=== PATIENT | female | born 1940 | race Native Hawaiian/Other Pacific Islander ===

== ENCOUNTER 2016-10-16 15:02 | Outpatient (CLI) | payer OTHER ==
[~2016-10-16 15:02] MED LIST: ADLT ASA LOW81 MG PO; ALBU90AE13 INH; ALPR0.2566 PO; CITA20TA2 PO; CLARITIN10 MG PO; CLOP75TA2 PO; DICL1GEL2 TOP; DONE5TAB PO; GLIP10TA55 PO; HYDR12.54 PO; INSU100P SC; LEVEMIR SC; NIFE30TA PO; NOVOLOG SC; RESTORIL7.5 MG PO; RISP0.5T2 PO; SIMV40TA57; SUPER B COM1 PO; VALS160T PO; VITAMIN B-COMPLEX OR
[2016-10-16 16:09] LABS: PLATELET COUNT 411 K/uL (152-353)
[2016-10-16 16:34] LABS: POTASSIUM 4.8 mmol/L (3.6-5.2)
== END 2016-10-16 21:29 | disposition home or self-care (01) ==
LOC: LABW 15:02
PROVIDERS: Internal Medicine
DX: R06.02 Shortness of breath (principal); E11.9 Type 2 diabetes mellitus without complications
CPT/HCPCS: 36415; 80053; 80061; 83036; 83880; 84439; 84443; 85027; 85379

== ENCOUNTER 2016-10-17 15:39 | Outpatient (CLI) | payer OTHER | END 2016-10-17 21:44 | disposition home or self-care (01) | LOC: LAB 15:39 | DX: E11.9 Type 2 diabetes mellitus without complications (principal); R06.02 Shortness of breath | CPT/HCPCS: 81000; 82043; 82570 ==

== ENCOUNTER 2016-10-20 15:53 | Emergency (ER) | payer OTHER ==
[~2016-10-20] VITALS: Ht 157.5 cm; Wt 90.7 kg
[2016-10-20 17:01] LABS: PLATELET COUNT 401 K/uL (152-353)
[2016-10-20 17:21] LABS: POTASSIUM 4.6 mmol/L (3.6-5.2)
[2016-10-20 19:10] VITALS: BP 152/81; TEMP 98
== END 2016-10-20 19:10 | disposition home or self-care (01) ==
LOC: ED 15:53
DX: J44.9 Chronic obstructive pulmonary disease, unspecified (principal); E11.65 Type 2 diabetes mellitus with hyperglycemia; R06.09 Other forms of dyspnea
CPT/HCPCS: 36415; 80053; 81002; 82962; 83036; 83880; 85027; 93005; 96374; 96375; 96376; 99284; J1815; J2930

== ENCOUNTER 2016-12-30 19:41 | Emergency (ER) | payer OTHER ==
[~2016-12-30] VITALS: Ht 162.6 cm; Wt 94.3 kg
[2016-12-30 20:15] VITALS: BP 148/76; TEMP 98.6
== END 2016-12-30 20:17 | disposition home or self-care (01) ==
LOC: ED 19:41
DX: M77.8 Other enthesopathies, not elsewhere classified (principal)
CPT/HCPCS: 99281

== ENCOUNTER 2017-05-22 21:23 | Emergency (ER) | payer OTHER ==
[~2017-05-22] VITALS: Ht 165.1 cm; Wt 95.3 kg
[2017-05-22 22:10] LABS: PLATELET COUNT 333 K/uL (152-353)
[2017-05-22 23:49] LABS: POTASSIUM 4.6 mmol/L (3.6-5.2)
[2017-05-23 00:22] LABS: PARTIAL THROMBOPLASTIN TIME 20.8 SECONDS (24.5-33.6)
[2017-05-23 00:46] VITALS: BP 137/78; TEMP 98.8
== END 2017-05-23 01:01 | disposition home or self-care (01) ==
LOC: ED 21:23
DX: K85.90 Acute pancreatitis without necrosis or infection, unspecified (principal); E11.9 Type 2 diabetes mellitus without complications
CPT/HCPCS: 36415; 80053; 82150; 82550; 82553; 83690; 84484; 85027; 85610; 85730; 93005; 96374; 99284; J1885

== ENCOUNTER 2017-09-11 09:14 | Outpatient (CLI) | payer OTHER ==
[2017-09-11 09:36] LABS: PLATELET COUNT 369 K/uL (152-353)
[2017-09-11 10:15] LABS: POTASSIUM 4.8 mmol/L (3.6-5.2)
== END 2017-09-11 19:17 | disposition home or self-care (01) ==
LOC: LABW 09:14
PROVIDERS: Internal Medicine
DX: E11.9 Type 2 diabetes mellitus without complications (principal); R82.99 Other abnormal findings in urine
CPT/HCPCS: 36415; 80053; 80061; 81000; 83036; 84439; 84443; 85027; 87077; 87086; 87088; 87186

== ENCOUNTER 2019-01-27 19:58 | Inpatient (IN) | payer OTHER ==
[~2019-01-27] VITALS: Ht 160 cm; Wt 87.2 kg
[2019-01-27 20:05] VITALS: BP 124/64; TEMP 97
[2019-01-27] MEDS ORDERED: COZAAR100 MG PO (20:16)
[2019-01-27] MEDS ORDERED: GLIP10TA55 PO (20:19)
[2019-01-27] MEDS ORDERED: LEVEMIR FL100 UNIT/M SC (20:21)
[2019-01-27] MEDS ORDERED: NOVOLOG FL100 UNIT/M SC (20:22)
[2019-01-27 20:46] VITALS: BP 142/67
[2019-01-27 21:25] LABS: PLATELET COUNT 403 K/uL (152-353)
[2019-01-27 21:54] VITALS: BP 122/78
[2019-01-27 21:56] LABS: POTASSIUM 5.4 mmol/L (3.6-5.2); SODIUM 127 mmol/L (136-145)
[2019-01-27 23:25] VITALS: BP 140/115
[2019-01-28] VITALS (7 sets, daily range): BP systolic 105–171; BP diastolic 42–88; TEMP 97.4–98; Ht 160 cm; Wt 87.2 kg
[2019-01-28 00:22] LABS: POTASSIUM 5.9 mmol/L (3.6-5.2)
--- NOTE | 2019-01-28 02:00 | NUR ---
REPORT RECIEVED FROM DEANN WHITING RN
--- NOTE | 2019-01-28 02:34 | NUR ---
PT ADMITTED FROM ER. PT ARRIVED VIA W/C. PT ALERT, ORIENTED X3
[2019-01-28 08:56] LABS: POTASSIUM 3.9 mmol/L (3.6-5.2)
--- NOTE | 2019-01-28 12:49 | NUR ---
Patient has a diagnosis of hyperkalemia, dehydration, arf, dhn arf and ibw 115+/-10%. weight at 189.7 and kcal for IBW 1600, pro 50-60, fluids for weight 2600 x 30 and 8827-1451 ml per day x 25. Presently is on a 2000 Calorie ADA diet plan. BMI at 33.6 and is class I obesity and is 165% IBW.
--- NOTE | 2019-01-28 14:32 | NUR ---
PHYSICAL THERAPY IN ROOM WITH PT
[2019-01-29] VITALS: BP 137/61; TEMP 98.7
[2019-01-29 04:00] VITALS: BP 154/64; TEMP 98.1
[2019-01-29 05:24] LABS: PLATELET COUNT 353 K/uL (152-353)
[2019-01-29 05:50] LABS: POTASSIUM 4.5 mmol/L (3.6-5.2)
[2019-01-29 08:00] VITALS: BP 149/53; TEMP 97.8
--- NOTE | 2019-01-29 11:29 | NUR ---
PT DISCHARED TO HOME. IV DC'D TIP INTACT, NO REDNESS NOTED. DRESSING APPLIED; COTTON BALL AND PAPER TAPE. DISCHARGE INSTRUCTIONS GIVEN WRITTEN AND VERBALLY TO PT AND FAMILY. PT AND FAMILY VERBALIZED UNDERSTANDING. PT WAS TOLD TO FOLLOW UP WITH PCP IN 3-5 DAYS. Q AND A PERIOD ALLOWED, NO FURTHER QUESTIONS.
--- NOTE | 2019-01-29 11:35 | NUR ---
PT DC'D HOME. TELEMETRY DC'D. PT TAKEN OUT BY WC TO PRIVATE FAMILY VEHICLE. NO DISTRESS NOTED.
== END 2019-01-29 11:35 | disposition home or self-care (01) | DRG 683 ==
LOC: ED 19:58 → MED/SURG 01-28 01:30
PROVIDERS: Emergency Medicine; ADMIT Internal Medicine
DX: N17.8 Other acute kidney failure (principal); B37.89 Other sites of candidiasis; E87.1 Hypo-osmolality and hyponatremia; N18.4 Chronic kidney disease, stage 4 (severe); E86.0 Dehydration; E87.5 Hyperkalemia; I25.10 Atherosclerotic heart disease of native coronary artery without angina pectoris; Z79.4 Long term (current) use of insulin; J44.9 Chronic obstructive pulmonary disease, unspecified; F41.8 Other specified anxiety disorders; Z79.01 Long term (current) use of anticoagulants; E11.22 Type 2 diabetes mellitus with diabetic chronic kidney disease; I12.9 Hypertensive chronic kidney disease with stage 1 through stage 4 chronic kidney disease, or unspecified chronic kidney disease
CPT/HCPCS: 36415; 80048; 80053; 81000; 82550; 83735; 84484; 85027; 93005; 96360; 96372; 96375; 99284; J1450; J1650; J1815; J2270; J2405; J3490

== ENCOUNTER 2019-03-23 15:33 | Outpatient (CLI) | payer OTHER ==
[~2019-03-23 15:33] MED LIST changes: +COZAAR100 MG PO; +LEVEMIR FL100 UNIT/M SC; +NOVOLOG FL100 UNIT/M SC
[2019-03-23 16:05] LABS: PLATELET COUNT 407 K/uL (152-353)
[2019-03-23 16:41] LABS: POTASSIUM 4.9 mmol/L (3.6-5.2)
== END 2019-03-23 23:41 | disposition home or self-care (01) ==
LOC: LABW 15:33
PROVIDERS: Physician Assistant
DX: E11.40 Type 2 diabetes mellitus with diabetic neuropathy, unspecified (principal); I10 Essential (primary) hypertension; K13.0 Diseases of lips; E55.9 Vitamin D deficiency, unspecified; E53.8 Deficiency of other specified B group vitamins; M15.8 Other polyosteoarthritis
CPT/HCPCS: 36415; 80053; 80061; 82306; 82607; 83036; 83735; 84443; 85027

== ENCOUNTER 2019-04-19 10:24 | Inpatient (IN) | payer OTHER | END 2019-05-05 10:39 | disposition still patient (30) | LOC: PAVB 10:24 | PROVIDERS: ADMIT Internal Medicine ==

== ENCOUNTER 2019-04-20 02:31 | Outpatient (CLI) | payer OTHER ==
[2019-04-20 08:48] LABS: PLATELET COUNT 373 K/uL (152-353)
[2019-04-20 09:05] LABS: POTASSIUM 4.3 mmol/L (3.6-5.2)
== END 2019-04-20 23:38 | disposition home or self-care (01) ==
LOC: LAB 02:31
PROVIDERS: Internal Medicine
DX: I12.9 Hypertensive chronic kidney disease with stage 1 through stage 4 chronic kidney disease, or unspecified chronic kidney disease (principal); N18.4 Chronic kidney disease, stage 4 (severe); E11.9 Type 2 diabetes mellitus without complications; E55.9 Vitamin D deficiency, unspecified; I25.10 Atherosclerotic heart disease of native coronary artery without angina pectoris; E86.0 Dehydration; E87.8 Other disorders of electrolyte and fluid balance, not elsewhere classified
CPT/HCPCS: 80053; 80061; 82306; 83036; 85027; 87081

== ENCOUNTER 2019-05-05 11:44 | Inpatient (IN) | payer OTHER | END 2019-06-05 16:30 | disposition still patient (30) | LOC: PAVB 11:44 | PROVIDERS: ADMIT Internal Medicine ==

== ENCOUNTER 2019-06-05 16:48 | Inpatient (IN) | payer OTHER | END 2019-07-05 09:36 | disposition still patient (30) | LOC: PAVB 16:48 | PROVIDERS: ADMIT Internal Medicine ==

== ENCOUNTER 2019-07-05 12:01 | Inpatient (IN) | payer OTHER | END 2019-08-05 11:14 | disposition still patient (30) | LOC: PAVB 12:01 | PROVIDERS: ADMIT Internal Medicine ==

== ENCOUNTER 2019-07-06 12:20 | Outpatient (CLI) | payer OTHER | END 2019-07-06 23:45 | disposition home or self-care (01) | LOC: LAB 12:20 | DX: E11.69 Type 2 diabetes mellitus with other specified complication (principal) | CPT/HCPCS: 83036 ==

== ENCOUNTER 2019-08-05 12:09 | Inpatient (IN) | payer OTHER | END 2019-09-04 08:00 | disposition still patient (30) | LOC: PAVB 12:09 | PROVIDERS: ADMIT Internal Medicine ==

== ENCOUNTER 2019-09-04 10:10 | Inpatient (IN) | payer OTHER | END 2019-10-05 09:05 | disposition still patient (30) | LOC: PAVB 10:10 | PROVIDERS: ADMIT Internal Medicine ==

== ENCOUNTER 2019-10-05 09:20 | Inpatient (IN) | payer OTHER | END 2019-11-05 10:00 | disposition still patient (30) | LOC: PAVB 09:20 | PROVIDERS: ADMIT Internal Medicine ==

== ENCOUNTER 2019-10-11 06:08 | Outpatient (CLI) | payer OTHER ==
[2019-10-11 08:09] LABS: PLATELET COUNT 339 K/uL (152-353)
[2019-10-11 08:41] LABS: POTASSIUM 4.9 mmol/L (3.6-5.2)
== END 2019-10-11 17:00 | disposition home or self-care (01) ==
LOC: LAB 06:08
PROVIDERS: Internal Medicine
DX: I12.9 Hypertensive chronic kidney disease with stage 1 through stage 4 chronic kidney disease, or unspecified chronic kidney disease (principal); N18.4 Chronic kidney disease, stage 4 (severe)
CPT/HCPCS: 80053; 85027

== ENCOUNTER 2019-11-05 10:19 | Inpatient (IN) | payer OTHER | END 2019-12-04 13:19 | disposition still patient (30) | LOC: PAVB 10:19 | PROVIDERS: ADMIT Internal Medicine ==

== ENCOUNTER 2019-11-14 06:16 | Outpatient (CLI) | payer OTHER ==
[2019-11-14 06:33] LABS: PLATELET COUNT 342 K/uL (152-353)
[2019-11-14 06:44] LABS: POTASSIUM 4.7 mmol/L (3.6-5.2)
== END 2019-11-14 19:02 | disposition home or self-care (01) ==
LOC: LAB 06:16
PROVIDERS: Internal Medicine
DX: I12.9 Hypertensive chronic kidney disease with stage 1 through stage 4 chronic kidney disease, or unspecified chronic kidney disease (principal); N18.4 Chronic kidney disease, stage 4 (severe); E11.9 Type 2 diabetes mellitus without complications
CPT/HCPCS: 80069; 85027

== ENCOUNTER 2019-12-04 13:40 | Inpatient (IN) | payer OTHER | END 2020-01-04 09:49 | disposition still patient (30) | LOC: PAVB 13:40 | PROVIDERS: ADMIT Internal Medicine ==

== ENCOUNTER 2020-01-04 11:24 | Inpatient (IN) | payer OTHER | END 2020-02-03 09:08 | disposition still patient (30) | LOC: PAVB 11:24 | PROVIDERS: ADMIT Internal Medicine ==

== ENCOUNTER 2020-01-10 05:08 | Outpatient (CLI) | payer OTHER | END 2020-01-10 19:08 | disposition home or self-care (01) | LOC: LAB 05:08 | DX: E11.9 Type 2 diabetes mellitus without complications (principal) | CPT/HCPCS: 36415; 83036 ==

== ENCOUNTER 2020-02-03 11:10 | Inpatient (IN) | payer OTHER | END 2020-03-05 09:15 | disposition still patient (30) | LOC: PAVB 11:10 | PROVIDERS: ADMIT Internal Medicine | CPT/HCPCS: 87635; U0002 ==

== ENCOUNTER 2020-03-05 11:17 | Inpatient (IN) | payer OTHER | END 2020-04-04 10:24 | disposition still patient (30) | LOC: PAVB 11:17 | PROVIDERS: ADMIT Internal Medicine | CPT/HCPCS: 87635; U0002 ==

== ENCOUNTER 2020-03-12 17:26 | Outpatient (CLI) | payer OTHER | END 2020-03-12 23:35 | disposition home or self-care (01) | LOC: RESP 17:26 | DX: I10 Essential (primary) hypertension (principal); R00.1 Bradycardia, unspecified | CPT/HCPCS: 93005 ==

== ENCOUNTER 2020-04-04 11:52 | Inpatient (IN) | payer OTHER | END 2020-05-05 09:22 | disposition still patient (30) | LOC: PAVB 11:52 | PROVIDERS: ADMIT Internal Medicine | CPT/HCPCS: 87635; U0002 ==

== ENCOUNTER 2020-04-05 07:59 | Outpatient (CLI) | payer OTHER ==
[2020-04-05 09:16] LABS: POTASSIUM 4.9 mmol/L (3.6-5.2)
[2020-04-05 09:55] LABS: PLATELET COUNT 378 K/uL (152-353)
== END 2020-04-05 19:56 | disposition home or self-care (01) ==
LOC: LAB 07:59
PROVIDERS: Internal Medicine
DX: E11.9 Type 2 diabetes mellitus without complications (principal); I10 Essential (primary) hypertension; E78.49 Other hyperlipidemia; E55.9 Vitamin D deficiency, unspecified; I25.10 Atherosclerotic heart disease of native coronary artery without angina pectoris
CPT/HCPCS: 80053; 80061; 82306; 83036; 85027

== ENCOUNTER 2020-04-06 17:21 | Outpatient (CLI) | payer OTHER | END 2020-04-06 19:37 | disposition home or self-care (01) | LOC: LAB 17:21 | DX: I25.10 Atherosclerotic heart disease of native coronary artery without angina pectoris (principal); R79.89 Other specified abnormal findings of blood chemistry | CPT/HCPCS: 82607; 82747; 83540; 83550 ==

== ENCOUNTER 2020-04-08 17:07 | Outpatient (CLI) | payer OTHER | END 2020-04-08 19:05 | disposition home or self-care (01) | LOC: LAB 17:07 | DX: D64.89 Other specified anemias (principal) | CPT/HCPCS: 82272 ==

== ENCOUNTER 2020-04-19 11:28 | Outpatient (CLI) | payer OTHER ==
[2020-04-19 11:47] LABS: PLATELET COUNT 342 K/uL (152-353)
== END 2020-04-19 22:52 | disposition home or self-care (01) ==
LOC: LAB 11:28
PROVIDERS: Internal Medicine
DX: I25.10 Atherosclerotic heart disease of native coronary artery without angina pectoris (principal)
CPT/HCPCS: 85027

== ENCOUNTER 2020-04-27 14:44 | Outpatient (CLI) | payer OTHER | END 2020-04-27 19:50 | disposition home or self-care (01) | LOC: RAD 14:44 | PROVIDERS: ATTEND Internal Medicine | DX: J44.9 Chronic obstructive pulmonary disease, unspecified (principal) ==

== ENCOUNTER 2020-05-04 12:01 | Outpatient (CLI) | payer OTHER | END 2020-05-04 20:01 | disposition home or self-care (01) | LOC: LAB 12:01 | DX: E11.9 Type 2 diabetes mellitus without complications (principal) | CPT/HCPCS: 82947 ==

== ENCOUNTER 2020-05-05 05:35 | Outpatient (CLI) | payer OTHER | END 2020-05-05 19:11 | disposition home or self-care (01) | LOC: LAB 05:35 | DX: R82.998 Other abnormal findings in urine (principal) | CPT/HCPCS: 81000 ==

== ENCOUNTER 2020-05-05 10:08 | Inpatient (IN) | payer OTHER | END 2020-06-05 12:22 | disposition still patient (30) | LOC: PAVB 10:08 | PROVIDERS: ADMIT Internal Medicine ==

== ENCOUNTER 2020-06-05 13:23 | Inpatient (IN) | payer OTHER | END 2020-07-05 11:09 | disposition still patient (30) | LOC: PAVB 13:23 | PROVIDERS: ADMIT Internal Medicine ==

== ENCOUNTER 2020-07-05 14:05 | Inpatient (IN) | payer OTHER | END 2020-08-05 08:00 | disposition still patient (30) | LOC: PAVB 14:05 | PROVIDERS: ADMIT Internal Medicine ==

== ENCOUNTER 2020-07-09 07:19 | Outpatient (CLI) | payer OTHER | END 2020-07-09 23:36 | disposition home or self-care (01) | LOC: LAB 07:19 | DX: E11.9 Type 2 diabetes mellitus without complications (principal) | CPT/HCPCS: 83036 ==

== ENCOUNTER 2020-08-05 09:00 | Inpatient (IN) | payer OTHER | END 2020-09-04 10:00 | disposition still patient (30) | LOC: PAVB 09:00 | PROVIDERS: ADMIT Internal Medicine; ATTEND Internal Medicine ==

== ENCOUNTER 2020-09-04 11:22 | Inpatient (IN) | payer OTHER | END 2020-10-05 09:04 | disposition still patient (30) | LOC: PAVB 11:22 | PROVIDERS: ADMIT Internal Medicine; ATTEND Internal Medicine ==

== ENCOUNTER 2020-09-15 12:55 | Outpatient (CLI) | payer OTHER | END 2020-09-15 20:58 | disposition home or self-care (01) | LOC: LAB 12:55 | PROVIDERS: ATTEND Internal Medicine | DX: R19.7 Diarrhea, unspecified (principal); R11.2 Nausea with vomiting, unspecified | CPT/HCPCS: 83630; 87015; 87045; 87324; 87328; 87329; 87449; 87899 ==

== ENCOUNTER 2020-10-05 09:32 | Inpatient (IN) | payer OTHER | END 2020-11-05 14:57 | disposition still patient (30) | LOC: PAVB 09:32 | PROVIDERS: ADMIT Internal Medicine; ATTEND Internal Medicine ==

== ENCOUNTER 2020-10-08 08:43 | Outpatient (CLI) | payer OTHER ==
[2020-10-08 09:33] LABS: PLATELET COUNT 299 K/uL (152-353)
[2020-10-08 10:03] LABS: POTASSIUM 5.1 mmol/L (3.6-5.2)
== END 2020-10-08 21:06 | disposition home or self-care (01) ==
LOC: LAB 08:43
PROVIDERS: ATTEND Internal Medicine
DX: I10 Essential (primary) hypertension (principal); E55.9 Vitamin D deficiency, unspecified; E11.9 Type 2 diabetes mellitus without complications; I25.10 Atherosclerotic heart disease of native coronary artery without angina pectoris
CPT/HCPCS: 80053; 82306; 83036; 85027

== ENCOUNTER 2020-10-19 18:19 | Outpatient (CLI) | payer OTHER | END 2020-10-19 23:59 | disposition home or self-care (01) | LOC: LAB 18:19 | PROVIDERS: ATTEND Internal Medicine | DX: R73.09 Other abnormal glucose (principal) | CPT/HCPCS: 82947 ==

== ENCOUNTER 2020-11-05 15:26 | Inpatient (IN) | payer OTHER | END 2020-12-03 09:56 | disposition still patient (30) | LOC: PAVB 15:26 | PROVIDERS: ADMIT Internal Medicine; ATTEND Internal Medicine ==

== ENCOUNTER 2020-12-03 10:34 | Inpatient (IN) | payer OTHER | END 2021-01-03 10:16 | disposition still patient (30) | LOC: PAVB 10:34 | PROVIDERS: ADMIT Internal Medicine; ATTEND Internal Medicine ==

== ENCOUNTER 2021-01-03 10:48 | Inpatient (IN) | payer OTHER | END 2021-02-02 10:52 | disposition still patient (30) | LOC: PAVB 10:48 | PROVIDERS: ADMIT Internal Medicine; ATTEND Internal Medicine ==

== ENCOUNTER 2021-01-03 13:21 | Outpatient (CLI) | payer OTHER | END 2021-01-03 21:35 | disposition home or self-care (01) | LOC: LAB 13:21 | PROVIDERS: ATTEND Internal Medicine | DX: E11.9 Type 2 diabetes mellitus without complications (principal) | CPT/HCPCS: 83036 ==

== ENCOUNTER → 2021-01-13 | Outpatient (CLI) | payer OTHER | LOC: RAD 18:51 | PROVIDERS: ATTEND Internal Medicine | DX: R60.0 Localized edema (principal); S90.32XA Contusion of left foot, initial encounter; S90.31XA Contusion of right foot, initial encounter ==

== ENCOUNTER 2021-02-02 11:19 | Inpatient (IN) | payer OTHER | END 2021-03-05 14:40 | disposition still patient (30) | LOC: PAVB 11:19 | PROVIDERS: ADMIT Internal Medicine; ATTEND Internal Medicine ==

== ENCOUNTER 2021-03-05 15:22 | Inpatient (IN) | payer OTHER | END 2021-04-04 08:00 | disposition still patient (30) | LOC: PAVB 15:22 | PROVIDERS: ADMIT Internal Medicine; ATTEND Internal Medicine | CPT/HCPCS: 36415; 84550 ==

== ENCOUNTER 2021-03-23 02:13 | Observation (INO) | payer OTHER ==
[2021-04-05 13:18] LABS: PLATELET COUNT 299 K/uL (152-353)
[2021-04-05 13:20] LABS: POTASSIUM 4.9 mmol/L (3.6-5.2); SODIUM 139 mmol/L (136-145)
[2021-04-05 13:25] LABS: PARTIAL THROMBOPLASTIN TIME 22.7 SECONDS (24.5-33.6)
[2021-04-05 13:32] LABS: POTASSIUM 4.7 mmol/L (3.6-5.2)
== END 2021-03-24 10:30 ==
LOC: ED 02:13 → MED/SURG 07:45
PROVIDERS: ADMIT Family Medicine; ATTEND Internal Medicine Endocrinology, Diabetes & Metabolism
DX: R07.89 Other chest pain (principal); J44.9 Chronic obstructive pulmonary disease, unspecified; I25.10 Atherosclerotic heart disease of native coronary artery without angina pectoris; F03.90 Unspecified dementia, unspecified severity, without behavioral disturbance, psychotic disturbance, mood disturbance, and anxiety; E78.5 Hyperlipidemia, unspecified; G47.00 Insomnia, unspecified; M62.81 Muscle weakness (generalized); R26.2 Difficulty in walking, not elsewhere classified; E11.22 Type 2 diabetes mellitus with diabetic chronic kidney disease; I12.9 Hypertensive chronic kidney disease with stage 1 through stage 4 chronic kidney disease, or unspecified chronic kidney disease; N18.4 Chronic kidney disease, stage 4 (severe); F41.8 Other specified anxiety disorders; N39.0 Urinary tract infection, site not specified; B96.20 Unspecified Escherichia coli [E. coli] as the cause of diseases classified elsewhere
CPT/HCPCS: 36415; 80048; 80053; 81000; 82550; 82553; 82948; 84484; 85027; 85610; 85730; 87077; 87086; 87088; 87186; 87635; 93005; 96372; 99220; 99283; G0378; U0003

== ENCOUNTER 2021-03-26 14:48 | Outpatient (CLI) | payer OTHER | END 2021-03-26 17:00 | disposition home or self-care (01) | LOC: RAD 14:48 | PROVIDERS: ATTEND Internal Medicine | DX: M79.671 Pain in right foot (principal) ==

== ENCOUNTER 2021-04-01 11:46 | Observation (INO) | payer OTHER ==
[~2021-04-01] VITALS: Ht 160 cm; Wt 87.1 kg
[2021-04-09 10:43] LABS: POTASSIUM 5.2 mmol/L (3.6-5.2); SODIUM 142 mmol/L (136-145)
[2021-04-09 10:45] LABS: PARTIAL THROMBOPLASTIN TIME 22.4 SECONDS (24.5-33.6)
[2021-04-09 10:46] LABS: PLATELET COUNT 311 K/uL (152-353)
[2021-04-09 10:47] LABS: SODIUM 140 mmol/L (136-145)
[2021-04-09 10:49] LABS: POTASSIUM 6.3 mmol/L (3.6-5.2)
[2021-04-09 10:50] LABS: POTASSIUM 5.9 mmol/L (3.6-5.2)
== END 2021-04-02 15:15 ==
LOC: ED 11:46 → MED/SURG 16:35
PROVIDERS: ADMIT Emergency Medicine Emergency Medical Services; ATTEND Internal Medicine
DX: R07.89 Other chest pain (principal); N18.4 Chronic kidney disease, stage 4 (severe); E87.5 Hyperkalemia; F03.90 Unspecified dementia, unspecified severity, without behavioral disturbance, psychotic disturbance, mood disturbance, and anxiety; I25.10 Atherosclerotic heart disease of native coronary artery without angina pectoris; E11.42 Type 2 diabetes mellitus with diabetic polyneuropathy; J44.9 Chronic obstructive pulmonary disease, unspecified; I12.9 Hypertensive chronic kidney disease with stage 1 through stage 4 chronic kidney disease, or unspecified chronic kidney disease; E11.22 Type 2 diabetes mellitus with diabetic chronic kidney disease
CPT/HCPCS: 36415; 80048; 82550; 82948; 84443; 84484; 85027; 85610; 85730; 87635; 93005; 94760; 96360; 96361; 96365; 99220; 99284; G0378; J1650; J1815; J2405; J3490; U0003

== ENCOUNTER 2021-04-04 09:00 | Inpatient (IN) | payer OTHER | END 2021-05-05 08:00 | disposition still patient (30) | LOC: PAVB 09:00 | PROVIDERS: ADMIT Internal Medicine; ATTEND Internal Medicine ==

== ENCOUNTER 2021-04-08 06:03 | Outpatient (CLI) | payer OTHER ==
[2021-04-08 06:59] LABS: PLATELET COUNT 308 K/uL (152-353)
[2021-04-08 07:16] LABS: POTASSIUM 5.5 mmol/L (3.6-5.2)
== END 2021-04-08 23:00 | disposition home or self-care (01) ==
LOC: LAB 06:03
PROVIDERS: ATTEND Internal Medicine
DX: I10 Essential (primary) hypertension (principal); E11.9 Type 2 diabetes mellitus without complications; E87.5 Hyperkalemia; E78.49 Other hyperlipidemia; I25.10 Atherosclerotic heart disease of native coronary artery without angina pectoris; E55.9 Vitamin D deficiency, unspecified
CPT/HCPCS: 80053; 80061; 82306; 83036; 85027

== ENCOUNTER 2021-04-12 09:39 | Outpatient (CLI) | payer OTHER | END 2021-04-12 21:55 | disposition home or self-care (01) | LOC: MRI 09:39 | PROVIDERS: ATTEND Internal Medicine | DX: G45.9 Transient cerebral ischemic attack, unspecified (principal) ==

== ENCOUNTER 2021-05-05 09:00 | Inpatient (IN) | payer OTHER | END 2021-06-05 10:35 | disposition still patient (30) | LOC: PAVB 09:00 | PROVIDERS: ADMIT Internal Medicine; ATTEND Internal Medicine ==

== ENCOUNTER 2021-06-03 13:06 | Outpatient (CLI) | payer OTHER | END 2021-06-03 21:18 | disposition home or self-care (01) | LOC: RESP 13:06 | PROVIDERS: ATTEND Internal Medicine Cardiovascular Disease | DX: I25.10 Atherosclerotic heart disease of native coronary artery without angina pectoris (principal); G47.33 Obstructive sleep apnea (adult) (pediatric); R07.89 Other chest pain; I10 Essential (primary) hypertension; R00.2 Palpitations ==

== ENCOUNTER 2021-06-04 07:47 | Emergency (ER) | payer OTHER ==
[~2021-06-04] VITALS: Ht 160 cm; Wt 87.1 kg
[2021-06-04 07:47] VITALS: TEMP 97.6
[2021-06-04 08:52] VITALS: BP 156/64
== END 2021-06-04 08:53 ==
LOC: ED 07:47
DX: S70.02XA Contusion of left hip, initial encounter (principal); W18.39XA Other fall on same level, initial encounter; Y92.128 Other place in nursing home as the place of occurrence of the external cause
CPT/HCPCS: 99282

== ENCOUNTER 2021-06-05 13:32 | Inpatient (IN) | payer OTHER | END 2021-07-05 08:46 | disposition still patient (30) | LOC: PAVB 13:32 | PROVIDERS: ADMIT Internal Medicine; ATTEND Internal Medicine ==

== ENCOUNTER 2021-06-06 08:29 | Outpatient (CLI) | payer OTHER ==
[~2021-06-06] VITALS: Ht 160 cm; Wt 87.1 kg
== END 2021-06-06 22:10 | disposition home or self-care (01) ==
LOC: NM 08:29
PROVIDERS: ATTEND Internal Medicine Cardiovascular Disease
DX: R07.89 Other chest pain (principal); I10 Essential (primary) hypertension; R00.2 Palpitations
CPT/HCPCS: A9500; J2785

== ENCOUNTER 2021-07-08 09:17 | Outpatient (CLI) | payer OTHER ==
[2021-07-08 09:34] LABS: PLATELET COUNT 306 K/uL (152-353)
[2021-07-08 10:05] LABS: POTASSIUM 4.7 mmol/L (3.6-5.2)
== END 2021-07-08 21:06 | disposition home or self-care (01) ==
LOC: LAB 09:17
PROVIDERS: ATTEND Internal Medicine
DX: E11.9 Type 2 diabetes mellitus without complications (principal); N18.4 Chronic kidney disease, stage 4 (severe); I10 Essential (primary) hypertension; M10.9 Gout, unspecified; D64.9 Anemia, unspecified; E53.8 Deficiency of other specified B group vitamins
CPT/HCPCS: 80053; 81000; 82306; 82607; 82728; 82746; 83036; 83540; 83550; 83735; 83970; 84100; 84439; 84443; 85027; 85652; 86038

== ENCOUNTER 2021-09-04 10:52 | Inpatient (IN) | payer OTHER ==
[2021-09-26] MEDS ORDERED: FERRETTS325 MG PO (05:08)
[2021-09-26] MEDS ORDERED: VITAMIN D1000 UNIT PO (05:13)
[2021-09-26] MEDS ORDERED: SIMV40TA57 (05:16)
[2021-09-26] MEDS ORDERED: GABA100C2 PO (05:18)
[2021-09-26] MEDS ORDERED: GLIP10TA55 PO (05:19)
[2021-09-26] MEDS ORDERED: COZAAR100 MG PO (05:21)
[2021-09-26] MEDS ORDERED: AMLODIPINE BESYLATE PO (05:24)
[2021-09-26] MEDS ORDERED: HYDROCHLOROT12.5 M1 PO (05:25)
[2021-09-26] MEDS ORDERED: CITALOPRAM10 M1 PO (05:26)
[2021-09-26] MEDS ORDERED: DONE5TAB PO (05:28)
== END 2021-10-05 08:23 | disposition still patient (30) ==
LOC: PAVB 10:52
PROVIDERS: ADMIT Internal Medicine; ATTEND Internal Medicine

== ENCOUNTER 2021-09-04 13:23 | Outpatient (CLI) | payer OTHER | END 2021-09-04 20:29 | disposition home or self-care (01) | LOC: RAD 13:23 | PROVIDERS: ATTEND Internal Medicine | DX: R60.0 Localized edema (principal) ==

== ENCOUNTER 2021-09-26 00:44 | Inpatient (IN) | payer OTHER ==
[~2021-09-26] VITALS: Ht 160 cm; Wt 92.6 kg
[2021-09-26] VITALS (12 sets, daily range): BP systolic 110–156; BP diastolic 47–72; TEMP 95.1–99.4; Ht 160 cm; Wt 92.6 kg
[2021-09-26 01:16] LABS: PLATELET COUNT 292 K/uL (152-353)
[2021-09-26] MEDS ORDERED: FERRETTS325 MG PO (05:08)
[2021-09-26] MEDS ORDERED: VITAMIN D1000 UNIT PO (05:13)
[2021-09-26] MEDS ORDERED: SIMV40TA57 (05:16)
[2021-09-26] MEDS ORDERED: GABA100C2 PO (05:18)
[2021-09-26] MEDS ORDERED: GLIP10TA55 PO (05:19)
[2021-09-26] MEDS ORDERED: COZAAR100 MG PO (05:21)
[2021-09-26] MEDS ORDERED: AMLODIPINE BESYLATE PO (05:24)
[2021-09-26] MEDS ORDERED: HYDROCHLOROT12.5 M1 PO (05:25)
[2021-09-26] MEDS ORDERED: CITALOPRAM10 M1 PO (05:26)
[2021-09-26] MEDS ORDERED: DONE5TAB PO (05:28)
[2021-09-26 07:13] LABS: PLATELET COUNT 273 K/uL (152-353)
[2021-09-26 07:19] LABS: POTASSIUM 4.9 mmol/L (3.6-5.2)
[2021-09-27 04:26] VITALS: BP 134/55; TEMP 98.9
[2021-09-27 06:07] LABS: POTASSIUM 5.5 mmol/L (3.6-5.2)
[2021-09-27 08:00] VITALS: BP 148/51; TEMP 98
[2021-09-27 12:44] VITALS: BP 155/58; TEMP 98.8
[2021-09-27 16:44] VITALS: BP 157/61; TEMP 98
[2021-09-27 20:46] VITALS: BP 142/44; TEMP 99.3
[2021-09-28 00:44] VITALS: BP 167/70; TEMP 98.8
[2021-09-28 04:44] VITALS: BP 157/82; TEMP 99.2
[2021-09-28 05:11] LABS: PLATELET COUNT 265 K/uL (152-353)
[2021-09-28 05:29] LABS: POTASSIUM 4.3 mmol/L (3.6-5.2)
[2021-09-28 08:44] VITALS: BP 153/61; TEMP 99.5
== END 2021-09-28 10:30 | DRG 191 ==
LOC: ED 00:44 → ICU 03:00 → MED/SURG 15:15
PROVIDERS: Family Medicine; ADMIT Emergency Medicine Emergency Medical Services; ATTEND Internal Medicine
DX: J44.1 Chronic obstructive pulmonary disease with (acute) exacerbation (principal); I25.110 Atherosclerotic heart disease of native coronary artery with unstable angina pectoris; N18.4 Chronic kidney disease, stage 4 (severe); N17.8 Other acute kidney failure; E11.649 Type 2 diabetes mellitus with hypoglycemia without coma; R39.2 Extrarenal uremia; G25.2 Other specified forms of tremor; R53.81 Other malaise; E87.5 Hyperkalemia; G47.33 Obstructive sleep apnea (adult) (pediatric); F03.90 Unspecified dementia, unspecified severity, without behavioral disturbance, psychotic disturbance, mood disturbance, and anxiety; E11.42 Type 2 diabetes mellitus with diabetic polyneuropathy; E11.65 Type 2 diabetes mellitus with hyperglycemia; E11.22 Type 2 diabetes mellitus with diabetic chronic kidney disease; I13.10 Hypertensive heart and chronic kidney disease without heart failure, with stage 1 through stage 4 chronic kidney disease, or unspecified chronic kidney disease
CPT/HCPCS: 36415; 36600; 51702; 80048; 80053; 81000; 82272; 82805; 82948; 83605; 83735; 83880; 84484; 85027; 85379; 85610; 87040; 87635; 93005; 94640; 94664; 94760; 96360; 96365; 96372; 96375; 99285; J0456; J0696; J1650; J1815; J1940; J2920; J2930; J3490; J7060; U0003

== ENCOUNTER 2021-10-02 08:21 | Emergency (ER) | payer OTHER ==
[~2021-10-02] VITALS: Ht 160 cm; Wt 87.1 kg
[~2021-10-02 08:21] MED LIST changes: +AMLODIPINE BESYLATE PO; +CITALOPRAM10 M1 PO; +FERRETTS325 MG PO; +GABA100C2 PO; +HYDROCHLOROT12.5 M1 PO; +VITAMIN D1000 UNIT PO
[2021-10-02 10:15] VITALS: BP 145/62; TEMP 97.8
== END 2021-10-02 10:15 ==
LOC: ED 08:21
DX: E11.649 Type 2 diabetes mellitus with hypoglycemia without coma (principal); Z79.4 Long term (current) use of insulin
CPT/HCPCS: 82948; 99282

== ENCOUNTER 2021-10-05 09:03 | Inpatient (IN) | payer OTHER | END 2021-11-05 09:33 | disposition still patient (30) | LOC: PAVB 09:03 | PROVIDERS: ADMIT Internal Medicine; ATTEND Internal Medicine ==

== ENCOUNTER 2021-10-08 08:52 | Outpatient (CLI) | payer OTHER ==
[2021-10-08 09:19] LABS: PLATELET COUNT 286 K/uL (152-353)
[2021-10-08 09:29] LABS: POTASSIUM 5.5 mmol/L (3.6-5.2)
== END 2021-10-08 19:09 | disposition home or self-care (01) ==
LOC: LAB 08:52
PROVIDERS: ATTEND Internal Medicine
DX: E11.9 Type 2 diabetes mellitus without complications (principal); I10 Essential (primary) hypertension
CPT/HCPCS: 80053; 82306; 83036; 85027

== ENCOUNTER 2021-10-16 06:33 | Outpatient (CLI) | payer OTHER | END 2021-10-16 18:50 | disposition home or self-care (01) | LOC: LAB 06:33 | PROVIDERS: ATTEND Internal Medicine | DX: E87.5 Hyperkalemia (principal) | CPT/HCPCS: 80048 ==

== ENCOUNTER 2021-11-05 15:41 | Inpatient (IN) | payer OTHER | END 2021-12-03 09:01 | disposition still patient (30) | LOC: PAVB 15:41 | PROVIDERS: ADMIT Internal Medicine; ATTEND Internal Medicine ==

== ENCOUNTER 2021-12-03 12:52 | Inpatient (IN) | payer OTHER | END 2022-01-03 08:43 | disposition still patient (30) | LOC: PAVB 12:52 | PROVIDERS: ADMIT Internal Medicine; ATTEND Internal Medicine ==

== ENCOUNTER 2022-01-03 09:55 | Inpatient (IN) | payer OTHER | END 2022-02-02 10:26 | disposition still patient (30) | LOC: PAVB 09:55 | PROVIDERS: ADMIT Internal Medicine; ATTEND Internal Medicine ==

== ENCOUNTER 2022-01-06 08:08 | Outpatient (CLI) | payer OTHER | END 2022-01-06 19:05 | disposition home or self-care (01) | LOC: LAB 08:08 | PROVIDERS: ATTEND Internal Medicine | DX: E11.9 Type 2 diabetes mellitus without complications (principal) | CPT/HCPCS: 83036 ==

== ENCOUNTER 2022-02-02 01:33 | Inpatient (IN) | payer OTHER | END 2022-03-05 09:40 | disposition still patient (30) | LOC: PAVB 01:33 | PROVIDERS: ADMIT Internal Medicine; ATTEND Internal Medicine ==

== ENCOUNTER 2022-03-05 14:35 | Inpatient (IN) | payer OTHER | END 2022-04-04 09:08 | disposition still patient (30) | LOC: PAVB 14:35 | PROVIDERS: ADMIT Internal Medicine; ATTEND Internal Medicine ==

== ENCOUNTER 2022-03-10 07:04 | Outpatient (CLI) | payer OTHER ==
[2022-03-10 08:05] LABS: PLATELET COUNT 290 K/uL (152-353)
== END 2022-03-10 18:57 | disposition home or self-care (01) ==
LOC: LAB 07:04
PROVIDERS: ATTEND Internal Medicine
DX: N18.4 Chronic kidney disease, stage 4 (severe) (principal); E11.9 Type 2 diabetes mellitus without complications
CPT/HCPCS: 80053; 81000; 82306; 82330; 82570; 82607; 82728; 82746; 83036; 83540; 83550; 83735; 83970; 84100; 84156; 84439; 84443; 85027; 85652; 86038

== ENCOUNTER 2022-04-04 07:46 | Outpatient (CLI) | payer OTHER ==
[2022-04-04 08:09] LABS: PLATELET COUNT 247 K/uL (152-353)
[2022-04-04 09:26] LABS: POTASSIUM 4.6 mmol/L (3.6-5.2)
== END 2022-04-04 21:13 | disposition home or self-care (01) ==
LOC: LAB 07:46
PROVIDERS: ATTEND Internal Medicine
DX: E55.9 Vitamin D deficiency, unspecified (principal); E11.9 Type 2 diabetes mellitus without complications
CPT/HCPCS: 80053; 80061; 82306; 83036; 85027

== ENCOUNTER 2022-04-04 11:47 | Inpatient (IN) | payer OTHER | END 2022-05-05 09:18 | disposition still patient (30) | LOC: PAVB 11:47 | PROVIDERS: ADMIT Internal Medicine; ATTEND Internal Medicine ==

== ENCOUNTER 2022-04-26 16:33 | Emergency (ER) | payer OTHER ==
[~2022-04-26] VITALS: Ht 160 cm; Wt 87.1 kg
[2022-04-26 16:35] VITALS: TEMP 98.7
[2022-04-26 17:37] LABS: PLATELET COUNT 306 K/uL (152-353); POTASSIUM 5.7 mmol/L (3.6-5.2)
[2022-04-26 18:30] VITALS: BP 145/62
== END 2022-04-26 19:02 | disposition short-term general hospital (02) ==
LOC: ED 16:33
PROVIDERS: Emergency Medicine
PROC: 0T9B70Z Drainage of Bladder with Drainage Device, Via Natural or Artificial Opening (ICD-10-PCS; principal; 2022-04-26)
DX: S32.038A Other fracture of third lumbar vertebra, initial encounter for closed fracture (principal); S37.092A Other injury of left kidney, initial encounter; S37.091A Other injury of right kidney, initial encounter; E87.5 Hyperkalemia; W18.39XA Other fall on same level, initial encounter; Y92.098 Other place in other non-institutional residence as the place of occurrence of the external cause; Z11.52 Encounter for screening for COVID-19
CPT/HCPCS: 36415; 51702; 80048; 85027; 87635; 96360; 96374; 96375; 96376; 99284; J2270; J2405; U0003

== ENCOUNTER 2022-05-02 15:52 | Emergency (ER) | payer OTHER ==
[~2022-05-02] VITALS: Ht 160 cm; Wt 87.1 kg
[2022-05-02 16:35] LABS: PLATELET COUNT 292 K/uL (152-353)
[2022-05-02 16:39] LABS: POTASSIUM 5.2 mmol/L (3.6-5.2)
[2022-05-02 17:42] LABS: PARTIAL THROMBOPLASTIN TIME 28.3 SECONDS (24.5-33.6)
[2022-05-02 17:54] VITALS: BP 145/78; TEMP 97.9
== END 2022-05-02 18:03 ==
LOC: ED 15:52
PROVIDERS: Hospitalist
DX: S00.03XA Contusion of scalp, initial encounter (principal); S00.83XA Contusion of other part of head, initial encounter; M25.561 Pain in right knee; W18.39XA Other fall on same level, initial encounter; Y92.128 Other place in nursing home as the place of occurrence of the external cause
CPT/HCPCS: 80048; 85027; 85610; 85730; 96374; 96375; 99284; J1885; J2270; J2405

== ENCOUNTER 2022-05-05 12:09 | Inpatient (IN) | payer OTHER | END 2022-06-05 09:05 | disposition still patient (30) | LOC: PAVB 12:09 | PROVIDERS: ADMIT Internal Medicine; ATTEND Internal Medicine | CPT/HCPCS: G0283-GP ==

== ENCOUNTER 2022-06-05 12:12 | Inpatient (IN) | payer OTHER | END 2022-07-05 10:29 | disposition still patient (30) | LOC: PAVB 12:12 | PROVIDERS: ADMIT Internal Medicine; ATTEND Internal Medicine ==

== ENCOUNTER 2022-07-05 12:53 | Inpatient (IN) | payer OTHER | END 2022-08-05 14:49 | disposition still patient (30) | LOC: PAVB 12:53 | PROVIDERS: ADMIT Internal Medicine; ATTEND Internal Medicine ==

== ENCOUNTER 2022-07-07 11:14 | Outpatient (CLI) | payer OTHER | END 2022-07-07 20:45 | disposition home or self-care (01) | LOC: LAB 11:14 | PROVIDERS: ATTEND Internal Medicine | DX: E11.9 Type 2 diabetes mellitus without complications (principal) | CPT/HCPCS: 83036 ==

== ENCOUNTER 2022-08-05 15:48 | Inpatient (IN) | payer OTHER | END 2022-09-04 15:10 | disposition still patient (30) | LOC: PAVB 15:48 | PROVIDERS: ADMIT Internal Medicine; ATTEND Internal Medicine ==

== ENCOUNTER 2022-09-04 17:31 | Inpatient (IN) | payer OTHER | END 2022-10-05 10:39 | disposition still patient (30) | LOC: PAVB 17:31 | PROVIDERS: ADMIT Internal Medicine; ATTEND Internal Medicine ==

== ENCOUNTER 2022-10-05 12:31 | Inpatient (IN) | payer OTHER ==
[~2022-10-05 12:31] MED LIST changes: +BAYER ASPIRIN325 MG PO; -FERRETTS325 MG PO; +FERROUS SULF325 M1 PO; -HYDROCHLOROT12.5 M1 PO; +HYDROCHLOROTHIAZIDE PO
[2022-10-31] MEDS ORDERED: FARXIGA10 MG PO (09:06)
[2022-10-31] MEDS ORDERED: LEVEMIR FL100 UNIT/M SC (09:11)
[2022-10-31] MEDS ORDERED: GLUCERN1 PO (09:18)
[2022-10-31] MEDS ORDERED: CLON0.1T16 PO (09:23)
[2022-10-31] MEDS ORDERED: TRAMADOL HYDROC50 MG PO (09:24)
[2022-11-01] MEDS ORDERED: LEVAQUIN250 MG PO (11:19)
== END 2022-11-05 08:52 | disposition still patient (30) ==
LOC: PAVB 12:31
PROVIDERS: ADMIT Internal Medicine; ATTEND Internal Medicine

== ENCOUNTER 2022-10-06 08:14 | Outpatient (CLI) | payer OTHER ==
[~2022-10-06 08:14] MED LIST changes: -BAYER ASPIRIN325 MG PO; +FERRETTS325 MG PO; -FERROUS SULF325 M1 PO; +HYDROCHLOROT12.5 M1 PO; -HYDROCHLOROTHIAZIDE PO
[2022-10-06 09:08] LABS: PLATELET COUNT 332 K/uL (152-353)
[2022-10-06 09:16] LABS: POTASSIUM 4.5 mmol/L (3.6-5.2)
== END 2022-10-06 19:04 | disposition home or self-care (01) ==
LOC: LAB 08:14
PROVIDERS: ATTEND Internal Medicine
DX: E11.9 Type 2 diabetes mellitus without complications (principal); E55.9 Vitamin D deficiency, unspecified; I10 Essential (primary) hypertension
CPT/HCPCS: 80053; 82306; 83036; 85027

== ENCOUNTER 2022-10-30 21:29 | Observation (INO) | payer OTHER ==
[~2022-10-30] VITALS: Ht 160 cm; Wt 85.9 kg
[2022-10-30 21:29] VITALS: BP 184/69; TEMP 97.9
[~2022-10-30 21:29] MED LIST changes: +BAYER ASPIRIN325 MG PO; -FERRETTS325 MG PO; +FERROUS SULF325 M1 PO; -HYDROCHLOROT12.5 M1 PO; +HYDROCHLOROTHIAZIDE PO
[2022-10-30 22:00] VITALS: BP 109/88
[2022-10-30 22:37] LABS: PLATELET COUNT 349 K/uL (152-353)
[2022-10-30 22:47] LABS: POTASSIUM 4.6 mmol/L (3.6-5.2)
[2022-10-31] VITALS (7 sets, daily range): BP systolic 138–186; BP diastolic 56–77; TEMP 97.8–98.4; Ht 160 cm; Wt 85.9 kg
[2022-10-31 05:20] LABS: PLATELET COUNT 320 K/uL (152-353)
[2022-10-31 05:54] LABS: POTASSIUM 4.3 mmol/L (3.6-5.2)
[2022-10-31] MEDS ORDERED: FARXIGA10 MG PO (09:06)
[2022-10-31] MEDS ORDERED: LEVEMIR FL100 UNIT/M SC (09:11)
[2022-10-31] MEDS ORDERED: GLUCERN1 PO (09:18)
[2022-10-31] MEDS ORDERED: CLON0.1T16 PO (09:23)
[2022-10-31] MEDS ORDERED: TRAMADOL HYDROC50 MG PO (09:24)
[2022-11-01] VITALS: BP 152/66; TEMP 98.6
[2022-11-01 04:00] VITALS: BP 153/61; TEMP 97.1
[2022-11-01 08:00] VITALS: BP 175/80; TEMP 98.4
[2022-11-01] MEDS ORDERED: LEVAQUIN250 MG PO (11:19)
== END 2022-11-01 12:10 ==
LOC: ED 21:29 → MED/SURG 23:34
PROVIDERS: ADMIT Emergency Medicine; ATTEND Internal Medicine
DX: I24.9 Acute ischemic heart disease, unspecified (principal); R07.89 Other chest pain; N39.0 Urinary tract infection, site not specified; B96.1 Klebsiella pneumoniae [K. pneumoniae] as the cause of diseases classified elsewhere; R06.02 Shortness of breath; G47.33 Obstructive sleep apnea (adult) (pediatric); R06.89 Other abnormalities of breathing; J44.9 Chronic obstructive pulmonary disease, unspecified; E11.22 Type 2 diabetes mellitus with diabetic chronic kidney disease; E11.65 Type 2 diabetes mellitus with hyperglycemia; I12.9 Hypertensive chronic kidney disease with stage 1 through stage 4 chronic kidney disease, or unspecified chronic kidney disease; N18.4 Chronic kidney disease, stage 4 (severe); N17.8 Other acute kidney failure
CPT/HCPCS: 36415; 80053; 81000; 82948; 83690; 83880; 84484; 85027; 85610; 85730; 87077; 87086; 87088; 87186; 87635; 93005; 96360; 96361; 96365; 96367; 96372; 99220; 99284; G0378; J0744; J1815; J2405; U0003

== ENCOUNTER 2022-11-05 11:13 | Inpatient (IN) | payer OTHER ==
[~2022-11-05 11:13] MED LIST changes: +CLON0.1T16 PO; +FARXIGA10 MG PO; +GLUCERN1 PO; +LEVAQUIN250 MG PO; +TRAMADOL HYDROC50 MG PO
== END 2022-12-03 12:05 | disposition still patient (30) ==
LOC: PAVB 11:13
PROVIDERS: ADMIT Internal Medicine; ATTEND Internal Medicine

== ENCOUNTER 2022-11-21 08:52 | Emergency (ER) | payer OTHER ==
[~2022-11-21] VITALS: Ht 160 cm; Wt 83.9 kg
[2022-11-21 08:52] VITALS: TEMP 97.8
[2022-11-21 09:54] LABS: PLATELET COUNT 377 K/uL (152-353)
[2022-11-21 10:01] LABS: POTASSIUM 4.4 mmol/L (3.6-5.2)
[2022-11-21 10:33] LABS: PARTIAL THROMBOPLASTIN TIME 21.2 SECONDS (24.5-33.6)
[2022-11-21 11:25] VITALS: BP 152/69
== END 2022-11-21 11:25 ==
LOC: ED 08:52
PROVIDERS: Family Medicine
DX: M94.0 Chondrocostal junction syndrome [Tietze] (principal); N18.9 Chronic kidney disease, unspecified; R25.1 Tremor, unspecified
CPT/HCPCS: 36415; 36600; 80053; 81002; 82150; 82550; 82805; 83690; 83880; 84484; 85027; 85610; 85730; 93005; 99284

== ENCOUNTER 2022-12-03 14:09 | Inpatient (IN) | payer OTHER | END 2023-01-03 11:29 | disposition still patient (30) | LOC: PAVB 14:09 | PROVIDERS: ADMIT Internal Medicine; ATTEND Internal Medicine ==

== ENCOUNTER 2022-12-15 19:05 | Emergency (ER) | payer OTHER ==
[~2022-12-15] VITALS: Ht 162.6 cm; Wt 84.4 kg
[2022-12-15 19:46] LABS: PLATELET COUNT 375 K/uL (152-353)
[2022-12-15 19:52] LABS: POTASSIUM 4.8 mmol/L (3.6-5.2)
[2022-12-15 22:15] VITALS: BP 118/58; TEMP 98.3
== END 2022-12-15 22:15 | disposition home or self-care (01) ==
LOC: ED 19:05
PROVIDERS: Emergency Medicine Emergency Medical Services
DX: J44.1 Chronic obstructive pulmonary disease with (acute) exacerbation (principal); R06.02 Shortness of breath; F03.90 Unspecified dementia, unspecified severity, without behavioral disturbance, psychotic disturbance, mood disturbance, and anxiety
CPT/HCPCS: 36415; 36600; 80053; 81002; 82805; 83880; 84484; 85027; 85379; 85610; 87040; 93005; 94664; 96365; 96372; 99284; J0696; J2930

== ENCOUNTER 2023-01-03 12:04 | Inpatient (IN) | payer OTHER | END 2023-02-02 10:50 | disposition still patient (30) | LOC: PAVB 12:04 | PROVIDERS: ADMIT Internal Medicine; ATTEND Internal Medicine ==

== ENCOUNTER 2023-01-05 11:32 | Outpatient (CLI) | payer OTHER | END 2023-01-05 20:21 | disposition home or self-care (01) | LOC: LAB 11:32 | PROVIDERS: ATTEND Internal Medicine | DX: E11.9 Type 2 diabetes mellitus without complications (principal) | CPT/HCPCS: 83036 ==

== ENCOUNTER 2023-02-02 13:55 | Inpatient (IN) | payer OTHER | END 2023-03-05 10:38 | disposition still patient (30) | LOC: PAVB 13:55 | PROVIDERS: ADMIT Internal Medicine; ATTEND Internal Medicine ==

== ENCOUNTER 2023-02-02 16:03 | Outpatient (CLI) | payer OTHER | END 2023-02-02 19:30 | disposition home or self-care (01) | LOC: LABW 16:03 | PROVIDERS: ATTEND Internal Medicine | DX: R30.9 Painful micturition, unspecified (principal); R39.89 Other symptoms and signs involving the genitourinary system | CPT/HCPCS: 81000; 87077; 87086; 87088; 87186 ==

== ENCOUNTER 2023-02-24 07:30 | Outpatient (CLI) | payer OTHER ==
[2023-02-24 08:02] LABS: PLATELET COUNT 321 K/uL (152-353)
[2023-02-24 08:16] LABS: POTASSIUM 4.8 mmol/L (3.6-5.2)
== END 2023-02-24 19:05 | disposition home or self-care (01) ==
LOC: LAB 07:30
PROVIDERS: ATTEND Internal Medicine
DX: I12.9 Hypertensive chronic kidney disease with stage 1 through stage 4 chronic kidney disease, or unspecified chronic kidney disease (principal); N18.4 Chronic kidney disease, stage 4 (severe); E11.9 Type 2 diabetes mellitus without complications; M10.9 Gout, unspecified
CPT/HCPCS: 36415; 80053; 81000; 82306; 82330; 82570; 82607; 82728; 82746; 83036; 83540; 83550; 83735; 83970; 84100; 84156; 84439; 84443; 85027; 85652; 86038

== ENCOUNTER 2023-03-03 08:13 | Outpatient (CLI) | payer OTHER | END 2023-03-03 20:35 | LOC: LAB 08:13 | PROVIDERS: ATTEND Internal Medicine | DX: F03.90 Unspecified dementia, unspecified severity, without behavioral disturbance, psychotic disturbance, mood disturbance, and anxiety (principal); R79.0 Abnormal level of blood mineral | CPT/HCPCS: 83735 ==

== ENCOUNTER 2023-03-05 11:24 | Inpatient (IN) | payer OTHER | END 2023-04-04 17:35 | disposition still patient (30) | LOC: PAVB 11:24 | PROVIDERS: ADMIT Internal Medicine; ATTEND Internal Medicine ==

== ENCOUNTER 2023-04-08 06:01 | Outpatient (CLI) | payer OTHER ==
[2023-04-08 06:33] LABS: PLATELET COUNT 329 K/uL (152-353); POTASSIUM 4.6 mmol/L (3.6-5.2)
== END 2023-04-08 18:58 | disposition home or self-care (01) ==
LOC: LAB 06:01
PROVIDERS: ATTEND Internal Medicine
DX: E11.9 Type 2 diabetes mellitus without complications (principal); I25.10 Atherosclerotic heart disease of native coronary artery without angina pectoris; E55.9 Vitamin D deficiency, unspecified; I10 Essential (primary) hypertension
CPT/HCPCS: 80053; 80061; 82306; 83036; 85027

== ENCOUNTER 2023-06-15 05:17 | Outpatient (CLI) | payer OTHER ==
[2023-06-15 06:05] LABS: PLATELET COUNT 253 K/uL (152-353)
[2023-06-15 07:04] LABS: POTASSIUM 4.8 mmol/L (3.6-5.2)
== END 2023-06-15 19:01 | disposition home or self-care (01) ==
LOC: LAB 05:17
PROVIDERS: ATTEND Internal Medicine
DX: E11.9 Type 2 diabetes mellitus without complications (principal); N18.4 Chronic kidney disease, stage 4 (severe); R82.998 Other abnormal findings in urine
CPT/HCPCS: 80053; 81000; 82330; 82570; 83036; 83735; 83970; 84100; 84156; 84439; 84443; 85027; 87077; 87086; 87088; 87186